=== PATIENT | female | born 1985 | race Caucasian/White ===

== ENCOUNTER 2017-12-09 09:09 | Emergency (ER) | payer OTHER ==
[2017-12-09 09:22] VITALS: RESP 16; TEMP 98.9
--- NOTE | 2017-12-09 10:04 | ED ---
Skin/Abscess/FB HPI - General Chief complaint: Skin/Abscess/Foreign Body Stated complaint: rash Time Seen by Provider: 12/09/17 09:34 Source: patient, RN notes reviewed, old records reviewed Mode of arrival: ambulatory - History of Present Illness Initial comments: This patient is a pleasant 32-year-old female presents emergency Department with 3 days of a rash over her gluteal cleft. She also complains of pain related to her hemorrhoids with having a bowel movement. She is on pain medication and she relates that she has history of constipation. She reports that she has had a history of yeast infection in the past. She states that she has had some irritation and pain over her gluteal cleft and it initially was very itchy. She relates that she has had no concern for central transmitted infections. Was recently checked by her CHIEF QUALITY OFFICER for all of these. She's been with 3 partners, and she's been with her for many years. Patient states that she developed a hemorrhoids after . - Related Data Home Medications Medication Instructions Recorded Confirmed Hydrocodone/Acetaminophen 1 tab PO BID PRN 05/16/15 12/09/17 [Hydrocodon-Acetaminophn 10-325] Aspirin EC [Ecotrin] 325 mg PO DAILY 12/09/17 12/09/17 Folic Acid 1 mg PO HS 12/09/17 12/09/17 Methotrexate Sodium [Methotrexate] 12.5 mg PO WE 12/09/17 12/09/17 Previous Rx's Medication Instructions Recorded Bisacodyl [Dulcolax] 10 mg PO ONCE #20 tablet. 12/09/17 Fluconazole [Diflucan] 150 mg PO ONCE #3 tab 12/09/17 Hydrocortisone [Anusol-Hc] 1 applic RECTAL DAILY #1 tube 12/09/17 Nystatin 100,000 Unit/gm Powd 1 applic TOPICAL BID #1 bottle 12/09/17 [Mycostatin Powder] Allergies Allergy/AdvReac Type Severity Reaction Status Date / Time No Known Allergies Allergy Verified 12/09/17 09:17 Review of Systems ROS Statement: Those systems with pertinent positive or pertinent negative responses have been documented in the HPI. ROS Other: All systems not noted in ROS Statement are negative. Past Medical History Past Medical History: Rheumatoid Arthritis (RA) Additional Past Medical History / Comment(s): frequent lower abdominal pain, nauseated,lupus anticoagulant disorder History of Any Multi-Drug Resistant Organisms: None Reported Past Surgical History: Orthopedic Surgery Additional Past Surgical History / Comment(s): arthrscopies knee Past Anesthesia/Blood Transfusion Reactions: No Reported Reaction Past Psychological History: No Psychological Hx Reported Smoking Status: Former smoker Past Alcohol Use History: Rare Past Drug Use History: None Reported - Past Family History Mother Family Medical History: No Reported History General Exam - General Exam Comments Initial Comments: 32-year-old female. No acute distress. General appearance: alert, in no apparent distress Head exam: Present: atraumatic, normocephalic, normal inspection Eye exam: Present: normal appearance, PERRL, EOMI. Absent: scleral icterus, conjunctival injection, periorbital swelling ENT exam: Present: normal exam, mucous membranes moist Neck exam: Present: normal inspection. Absent: tenderness, meningismus, lymphadenopathy Respiratory exam: Present: normal lung sounds bilaterally. Absent: respiratory distress, wheezes, rales, rhonchi, stridor Cardiovascular Exam: Present: regular rate, normal rhythm, normal heart sounds. Absent: systolic murmur, diastolic murmur, rubs, gallop, clicks GI/Abdominal exam: Present: soft, normal bowel sounds. Absent: distended, tenderness, guarding, rebound, rigid Rectal exam: Present: normal rectal tone, hemorrhoids (Patient has evidence of external hemorrhoid. No evidence of thrombosed hemorrhoid.), other (Patient has evidence of candidal infection over the gluteal cleft. There appears to be a small fissure noted in the gluteal cleft due to skin irritation.) Extremities exam: Present: normal inspection, full ROM, normal capillary refill. Absent: tenderness, pedal edema, joint swelling, calf tenderness Back exam: Present: normal inspection Neurological exam: Present: alert, oriented X3, CN II-XII intact Psychiatric exam: Present: normal affect, normal mood Course Vital Signs 12/09/17 09:16 Temperature 98.9 F Pulse Rate 94 Respiratory 16 Rate Blood Pressure 131/77 O2 Sat by Pulse 100 Oximetry Medical Decision Making - Medical Decision Making Patient's 32-year-old female presents emergency Department with infection of her gluteal cleft, and itching, she also reports pain related to hemorrhoids. Patient said history parents are many years. She said the pains got worse over the past week. She relates she also had some significant itching over her gluteal cleft. It appears the patient has a yeast infection. We'll treat the patient with Diflucan and nystatin powder. Discussed keeping the areas dry as possible., Severe the patient has a small fissure in the scan related to the [place] infection. Patient also will be started on stool softeners and Anusol for the hemorrhoid pain. Discussed appropriate follow-up with GI specialist or surgeon for possibility of hemorrhoid removal in banding. Patient agrees to treatment plan will comply. Return parameters were discussed. Disposition Clinical Impression: Kristan infection, Hemorrhoid Disposition: HOME SELF-CARE Condition: Good Instructions: Hemorrhoids (ED), Skin Yeast Infection (ED) Additional Instructions: Patient advised to follow-up with primary care provider and GI specialist in regards to the hemorrhoids and skin infection. Take the medications as prescribed. Return to emergency department if any alarming signs or symptoms occur. Prescriptions: Bisacodyl [Dulcolax] 10 mg PO ONCE #20 tablet. Fluconazole [Diflucan] 150 mg PO ONCE #3 tab Hydrocortisone [Anusol-Hc] 1 applic RECTAL DAILY #1 tube Nystatin 100,000 Unit/gm Powd [Mycostatin Powder] 1 applic TOPICAL BID #1 bottle Referrals: Isaac Shaw DO [Primary Care Provider] - 1-2 days Time of Disposition: 10:00
[2017-12-09 10:13] VITALS: BP 139/70; PULSE 74
== END 2017-12-09 10:19 | disposition home or self-care (01) ==
LOC: EC 09:09
DX: B37.9 Candidiasis, unspecified (principal); K64.4 Residual hemorrhoidal skin tags; Z87.891 Personal history of nicotine dependence; Z79.82 Long term (current) use of aspirin; Z79.899 Other long term (current) drug therapy
CPT/HCPCS: 36415; 82272; 87070; 87205; 99283

== ENCOUNTER → 2017-12-31 | Outpatient (CLI) | payer OTHER ==
--- NOTE | 2017-12-31 10:03 | CT ---
EXAMINATION TYPE: CT abdomen pelvis w con DATE OF EXAM: 12/31/2017 COMPARISON: NONE HISTORY: Abd/pelvic pain, Lymphadenopathy CT DLP: 1179 mGycm Automated exposure control for dose reduction was used. CONTRAST: CT scan of the abdomen pelvis is performed with IV Contrast, patient injected with 100 mL of Isovue 3 00. FINDINGS- LUNG BASES- No significant abnormality is appreciated. LIVER/GB- No gross abnormality is appreciated. PANCREAS- No gross abnormality is seen. SPLEEN- No gross abnormality is seen. ADRENALS- No gross abnormality is seen. KIDNEYS/BLADDER- no hydronephrosis nephrolithiasis or renal mass. BOWEL-mild wall thickening of the left colon and sigmoid colon.. LYMPH NODES-there are multiple areas of shotty adenopathy involving the inguinal femoral region bilat erally with one lymph node measuring short axis of 1 cm compatible with a pathologic lymph node. No i ntra-abdominal or pelvic pathologic adenopathy.. OSSEOUS STRUCTURES- No significant abnormality is seen. OTHER- 1 cm right ovarian cyst. Aorta of normal caliber. IMPRESSION- 1. Predominantly shotty adenopathy involving the inguinal region bilaterally with one lymph node [place] uring a short axis measurement of 1 cm compatible with a area of adenopathy. Findings correlate with pelvic ultrasound findings. Nonspecific in appearance. No intra-abdominal or pelvic adenopathy. 2. Mild wall thickening of the left colon and sigmoid colon may be related to incomplete distention r ather than colitis correlate clinically.
== END | disposition home or self-care (01) ==
LOC: RADCTMAIN 07:48
PROVIDERS: ATTEND Family Medicine
DX: R59.1 Generalized enlarged lymph nodes (principal); K63.89 Other specified diseases of intestine; Z79.899 Other long term (current) drug therapy
CPT/HCPCS: 74177; Q9967

== ENCOUNTER → 2018-05-20 | Outpatient (CLI) | payer OTHER ==
--- NOTE | 2018-05-20 09:52 | MR ---
EXAMINATION TYPE: MR brain wo con DATE OF EXAM: 05/20/2018 COMPARISON: NONE HISTORY: Migraine, unspecified, not intractable T1-weighted sagittal, T2, FLAIR, and diffusion axial, and T2 coronal coronal views of the brain are s ubmitted. There is no evidence of acute ischemia. The ventricles, basal cisterns, and sulci overlying the conv exities are consistent with the patient's age. There is no mass effect. Sella turcica has a normal appearance. No cerebellopontine angle mass. White matter: There are approximately 6 focal areas of abnormal signal in the white matter. All measu re less than 5 mm. There is nodular prominence of the region of the anterior communicating artery. Changes of chronic sinusitis noted. Cerebellar tonsils are low-lying in position measuring at the lev el the foramen magnum. IMPRESSION: 1. No acute intracranial process. 2. Low-lying cerebellar tonsils at the level the foramen magnum. 3. Minimal nonspecific white matter changes can be seen with migraine headaches, hypertension althoug h tiny focal areas remote microvascular ischemia or demyelinating process not entirely excluded. 4. There is a nodular prominence at the level of the anterior communicating artery. Would recommend M RA [place] to exclude a small aneurysm. 5. Mild changes of chronic sinusitis.
== END | disposition home or self-care (01) ==
LOC: RADMRIMAIN 09:11
PROVIDERS: ATTEND Family Medicine
DX: R90.89 Other abnormal findings on diagnostic imaging of central nervous system (principal)
CPT/HCPCS: 70551

== ENCOUNTER → 2018-05-31 | Outpatient (CLI) | payer OTHER ==
--- NOTE | 2018-05-31 17:41 | MR ---
EXAMINATION TYPE: MR angio head wo con DATE OF EXAM: 05/31/2018 COMPARISON: MRI brain May 20, 2018 HISTORY: Migraines, Abn MRI of brain in pacs TECHNIQUE: Time of flight images focusing on the [place] were performed without contrast.. 2-D and 3-D postprocessing imaging is performed and MRI scanner. FINDINGS: There is codominant vertebrobasilar system. Vertebral arteries are patent to basilar juncti on. There are patent bilateral posterior communicating arteries. No aneurysmal change or significant stenosis in posterior circulation is identified. Anterior circulation shows very small caliber patent anterior communicating artery without focal aneu rysm. No significant focal stenosis or aneurysmal change is present with particular attention to area of concern on recent MRI. IMPRESSION: No aneurysm in the [place] is evident.
== END | disposition home or self-care (01) ==
LOC: RADMRIMAIN 16:08
PROVIDERS: ATTEND Family Medicine
DX: G43.909 Migraine, unspecified, not intractable, without status migrainosus (principal)
CPT/HCPCS: 70544

== ENCOUNTER 2018-12-26 19:16 | Outpatient (CLI) | payer OTHER ==
[2018-12-26 20:32] VITALS: BP 109/66; PULSE 94; RESP 14; TEMP 98.2
--- NOTE | 2019-01-10 08:33 | P.MSEPDOC ---
Presenting Problems - Arrival Data Date of Arrival on Unit: 12/26/18 Time of Arrival on Unit: 19:18 Mode of Transport: Ambulatory - Complaint OB-Reason for Admission/Chief Complaint: Possible Onset of Labor Comment: cntrx and tightening since 1299 Medical History - Information : 2 Para: 1 Term: 1 : 0 Abortions: Spontaneous or Elective: 0 Number of Living Children: 1 - Gestational Age Gestational Age by AKBAR (wks/days): 23 Weeks and 1 Days - History Complications: Multiple Review of Systems - Review of Systems Constitutional: No problems Breast: No problems ENT: No problems Cardiovascular: No problems Respiratory: No problems Gastrointestinal: No problems Genitourinary: No problems Musculoskeletal: No problems Neurological: No problems Skin: No problems Vital Signs - Temperature Temperature: 98.2 F Temperature Source: Temporal Artery Scan - Pulse Right Pulse Rate: 94 Pulse Assessment Method: Automatic Cuff - Respirations Respiratory Rate: 14 O2 Sat by Pulse Oximetry: 98 - Blood Pressure Right Arm Blood Pressure: 109/66 Blood Pressure Mean: 80 Blood Pressure Source: Automatic Cuff Medical Screen Scoring (Pre) - Cervical Exam Dilation: Exam Deferred Effacement: Exam Deferred - Uterine Contractions Frequency: N/A Duration: N/A Intensity: N/A - Maternal Vital Signs Maternal Temperature: N/A Maternal Blood Pressure: N/A Signs of Preeclampsia: N/A Maternal Respirations: N/A - Total Score Total Score (Pre): 0 - Level of Risk Level of Risk: Low (0-5) Physician Notification (Pre) - Notification Comment Comment: twins dopplered appropriately, see obix. c/o cntrx and tightening since 1299, cramps since 1729, no bleeding or leaking noted. will continue to monitor toco at this time, pt to donna if she's feeling any tightening, cntrx, cramping. verbalizes understanding Medical Screen Scoring (Post) - Cervical Exam Dilation: 0 cm = 0 Membranes: Intact - Uterine Contractions Frequency: N/A Duration: N/A Intensity: N/A - Maternal Vital Signs Maternal Temperature: N/A Signs of Preeclampsia: N/A Maternal Respirations: N/A - Pain Assessment Pain Intensity: 0 - Total Score Total Score (Post): 0 - Post Treatment Level of Risk Post Treatment Level of Risk: Low (0-5) Physician Notification (Post) - Physician Notified Physician Notified Date: 12/26/18 Physician Notified Time: 20:06 Physician/Practitioner Notified:: Dr Hilliard New Order Received: Yes - Notification Comment Comment: reported on pts c/o. reported on fhts dopplered for each twin, no cntrx noted per pt or toco since being here. reported on no early delivery hx, vs wnl, no other complaints. scheduled appt next week in [facility]. orders to obtain ffn, check pts cervix, if closed, do not send ffn, and pt may be d/c'd home. Disposition - Disposition OB Disposition: Discharge to home Discharge Date: 12/26/18 Discharge Time: 20:15 I agree with the RN Medical Screening Exam: Yes Risk & Benefit of care provided described in d/c instruction: Yes Diagnosis: FALSE LABOR BEFORE 37 COMPLETED WEEKS OF GEST, SECOND TRI (twins)
== END 2018-12-26 20:18 | disposition home or self-care (01) ==
LOC: FBPOP 19:16
PROVIDERS: ATTEND Obstetrics & Gynecology
DX: O47.02 False labor before 37 completed weeks of gestation, second trimester (principal); O30.002 Twin pregnancy, unspecified number of placenta and unspecified number of amniotic sacs, second trimester; Z3A.23 23 weeks gestation of pregnancy
CPT/HCPCS: 99213

== ENCOUNTER 2019-03-03 15:46 | Outpatient (CLI) | payer OTHER | END 2019-03-03 16:30 | disposition home or self-care (01) | LOC: FBPOP 15:46 | PROVIDERS: ATTEND Obstetrics & Gynecology | DX: O30.043 Twin pregnancy, dichorionic/diamniotic, third trimester (principal); Z3A.32 32 weeks gestation of pregnancy | CPT/HCPCS: 59025 ==

== ENCOUNTER 2019-03-07 14:34 | Outpatient (CLI) | payer OTHER | END 2019-03-07 15:15 | disposition home or self-care (01) | LOC: FBPOP 14:34 | PROVIDERS: ATTEND Obstetrics & Gynecology | DX: O30.043 Twin pregnancy, dichorionic/diamniotic, third trimester (principal) | CPT/HCPCS: 59025 ==

== ENCOUNTER 2019-03-10 10:47 | Outpatient (CLI) | payer OTHER ==
--- NOTE | 2019-05-12 17:46 | P.MSEPDOC ---
Presenting Problems - Arrival Data Date of Arrival on Unit: 03/10/19 Time of Arrival on Unit: 11:00 Mode of Transport: Ambulatory Disposition - Disposition Discharge Date: 03/10/19 Discharge Time: 11:27 I agree with the RN Medical Screening Exam: No Physician's MSE Comment: There is incomplete documentation on this document per nursing staff and therefore I cannot agree to it. Risk & Benefit of care provided described in d/c instruction: No Diagnosis: RELATED CONDITIONS, UNSP, UNSPECIFIED TRIMESTER
== END 2019-03-10 11:28 | disposition home or self-care (01) ==
LOC: FBPOP 10:47
PROVIDERS: ATTEND Obstetrics & Gynecology
DX: O26.893 Other specified pregnancy related conditions, third trimester (principal); Z3A.33 33 weeks gestation of pregnancy
CPT/HCPCS: 59025

== ENCOUNTER 2019-03-14 13:20 | Outpatient (CLI) | payer OTHER ==
[2019-03-14 14:17] VITALS: BP 120/72; PULSE 90; RESP 16; TEMP 97.3
--- NOTE | 2019-03-14 15:06 | P.MSEPDOC ---
Presenting Problems - Arrival Data Date of Arrival on Unit: 03/14/19 Time of Arrival on Unit: 13:20 Mode of Transport: Ambulatory - Complaint OB-Reason for Admission/Chief Complaint: NST Medical History - Information : 2 Para: 1 Term: 1 : 0 Abortions: Spontaneous or Elective: 0 Number of Living Children: 1 - Gestational Age Gestational Age by AKBAR (wks/days): 34 Weeks and 2 Days - History Complications: Multiple Review of Systems - Review of Systems Constitutional: No problems Breast: No problems ENT: No problems Cardiovascular: No problems Respiratory: No problems Gastrointestinal: No problems Genitourinary: No problems Musculoskeletal: No problems Neurological: No problems Skin: No problems Vital Signs - Temperature Temperature: 97.3 F Temperature Source: Temporal Artery Scan - Pulse Right Sitting Pulse Rate: 90 Pulse Assessment Method: Automatic Cuff - Respirations Respiratory Rate: 16 Oxygen Delivery Method: Room Air - Blood Pressure Right Arm Blood Pressure: 120/72 Blood Pressure Mean: 88 Blood Pressure Source: Automatic Cuff Medical Screen Scoring (Pre) - Cervical Exam Dilation: Exam Deferred Effacement: Exam Deferred Membranes: Intact - Uterine Contractions Frequency: N/A - Maternal Vital Signs Maternal Temperature: N/A Maternal Blood Pressure: N/A Signs of Preeclampsia: N/A Maternal Respirations: N/A - Maternal Trauma Maternal Trauma: N/A - Assessment - Baby A Baseline FHR: 135 Heart Rate - NICHD Category: Category I (Normal) = 0 NST: Reactive Position: N/A Station: N/A - Assessment - Baby B Baseline FHR: 150 Heart Rate - NICHD Category: Category I (Normal) = 0 NST: Reactive Position: N/A Station: N/A - Total Score - Baby A Total Score - Baby A: 0 - Total Score - Baby B Total Score - Baby B: 0 - Total Score - Baby C Total Score - Baby C: 0 - Level of Risk - Baby A Level of Risk - Baby A: Low (0-5) - Level of Risk - Baby B Level of Risk - Baby B: Low (0-5) - Level of Risk - Baby C Level of Risk - Baby C: Low (0-5) Physician Notification (Pre) - Physician Notified Physician Notified Date: 03/14/19 Physician Notified Time: 14:02 Physician/Practitioner Notifed:: Ashlyn New Order Received: Yes (D/c home) Disposition - Disposition OB Disposition: Discharge to home Discharge Date: 03/14/19 Discharge Time: 14:06 I agree with the RN Medical Screening Exam: Yes Risk & Benefit of care provided described in d/c instruction: Yes Diagnosis: MULTIPLE GESTATION, UNSPECIFIED, THIRD TRIMESTER
== END 2019-03-14 14:06 | disposition home or self-care (01) ==
LOC: FBPOP 13:20
PROVIDERS: ATTEND Obstetrics & Gynecology
DX: O30.003 Twin pregnancy, unspecified number of placenta and unspecified number of amniotic sacs, third trimester (principal); Z3A.34 34 weeks gestation of pregnancy
CPT/HCPCS: 59025; G0463; 99213

== ENCOUNTER 2019-03-17 11:26 | Outpatient (CLI) | payer OTHER ==
[2019-03-17 13:29] VITALS: BP 111/67; PULSE 92; RESP 16; TEMP 97
--- NOTE | 2019-03-21 20:54 | P.MSEPDOC ---
Presenting Problems - Arrival Data Date of Arrival on Unit: 03/17/19 Time of Arrival on Unit: 11:26 Mode of Transport: Ambulatory - Complaint OB-Reason for Admission/Chief Complaint: NST Medical History - Information : 2 Para: 1 Term: 1 : 0 Abortions: Spontaneous or Elective: 0 Number of Living Children: 1 - Gestational Age Gestational Age by AKBAR (wks/days): 34 Weeks and 5 Days - History Complications: No Care Review of Systems - Review of Systems Constitutional: No problems Breast: No problems ENT: No problems Cardiovascular: No problems Respiratory: No problems Gastrointestinal: No problems Genitourinary: No problems Musculoskeletal: No problems Neurological: No problems Skin: No problems Vital Signs - Temperature Temperature: 97.0 F Temperature Source: Temporal Artery Scan - Pulse Right Brachial Pulse Rate: 92 Pulse Assessment Method: Automatic Cuff - Respirations Respiratory Rate: 16 Oxygen Delivery Method: Room Air O2 Sat by Pulse Oximetry: 96 - Blood Pressure Right Arm Blood Pressure: 111/67 Blood Pressure Mean: 81 Blood Pressure Source: Automatic Cuff Medical Screen Scoring (Pre) - Cervical Exam Dilation: Exam Deferred Effacement: Exam Deferred Membranes: Intact - Uterine Contractions Frequency: N/A Duration: N/A Intensity: N/A - Maternal Vital Signs Maternal Temperature: N/A Maternal Blood Pressure: N/A Signs of Preeclampsia: N/A Maternal Respirations: N/A - Maternal Trauma Maternal Trauma: N/A - Assessment - Baby A Baseline FHR: 160 Heart Rate - NICHD Category: Category I (Normal) = 0 NST: Reactive Position: N/A Station: N/A - Assessment - Baby B Baseline FHR: 135 Heart Rate - NICHD Category: Category I (Normal) = 0 NST: Reactive Position: N/A Station: N/A - Total Score - Baby A Total Score - Baby A: 0 - Total Score - Baby B Total Score - Baby B: 0 - Total Score - Baby C Total Score - Baby C: 0 - Level of Risk - Baby A Level of Risk - Baby A: Low (0-5) - Level of Risk - Baby B Level of Risk - Baby B: Low (0-5) - Level of Risk - Baby C Level of Risk - Baby C: Low (0-5) Physician Notification (Pre) - Physician Notified Physician Notified Date: 03/17/19 Physician Notified Time: 12:09 Physician/Practitioner Notifed:: Dr. Goldberg Spoke With: Dr. Goldberg - Notification Comment Comment: Dr. Goldberg called and given report on pt nst. Reactive nst for both twin a and b. VS wnl. No contractions per toco or pt. Orders received to d/c pt to home. Disposition - Disposition OB Disposition: Discharge to home Discharge Date: 03/17/19 Discharge Time: 12:11 I agree with the RN Medical Screening Exam: Yes Risk & Benefit of care provided described in d/c instruction: Yes Diagnosis: TWIN , DICHORIONIC/DIAMNIOTIC, THIRD TRIMESTER
== END 2019-03-17 12:11 | disposition home or self-care (01) ==
LOC: FBPOP 11:26
PROVIDERS: ATTEND Obstetrics & Gynecology
DX: O30.043 Twin pregnancy, dichorionic/diamniotic, third trimester (principal); Z3A.34 34 weeks gestation of pregnancy
CPT/HCPCS: 59025; G0463; 99213

== ENCOUNTER 2019-03-21 13:26 | Outpatient (CLI) | payer OTHER ==
[2019-03-21 14:43] VITALS: BP 109/66; PULSE 86; RESP 16; TEMP 98.1
--- NOTE | 2019-03-21 20:54 | P.MSEPDOC ---
Presenting Problems - Arrival Data Date of Arrival on Unit: 03/21/19 Time of Arrival on Unit: 13:26 Mode of Transport: Ambulatory - Complaint OB-Reason for Admission/Chief Complaint: NST Comment: Twins Medical History - Information : 2 Para: 1 Term: 1 : 0 Abortions: Spontaneous or Elective: 0 Number of Living Children: 1 - Gestational Age Gestational Age by AKBAR (wks/days): 35 Weeks and 2 Days Vital Signs - Temperature Temperature: 98.1 F Temperature Source: Temporal Artery Scan - Pulse Right Brachial Pulse Rate: 86 Pulse Assessment Method: Auscultation - Respirations Respiratory Rate: 16 Oxygen Delivery Method: Room Air O2 Sat by Pulse Oximetry: 97 - Blood Pressure Right Arm Blood Pressure: 109/66 Blood Pressure Mean: 80 Blood Pressure Source: Automatic Cuff Medical Screen Scoring (Pre) - Assessment - Baby A Baseline FHR: 130 Heart Rate - NICHD Category: Category I (Normal) = 0 NST: Reactive Position: N/A Station: N/A - Assessment - Baby B Baseline FHR: 125 Heart Rate - NICHD Category: Category I (Normal) = 0 NST: Reactive Position: N/A Station: N/A - Total Score - Baby A Total Score - Baby A: 0 - Total Score - Baby B Total Score - Baby B: 0 - Level of Risk - Baby A Level of Risk - Baby A: Low (0-5) - Level of Risk - Baby B Level of Risk - Baby B: Low (0-5) Physician Notification (Post) - Physician Notified Physician Notified Date: 03/21/19 Physician Notified Time: 14:01 Physician/Practitioner Notified:: Ashlyn New Order Received: Yes - Notification Comment Comment: Routine Twin NST, reactive, no contractions, discharge to home, next appt 03/24 Disposition - Disposition OB Disposition: Discharge to home, Written follow up instructions reviewed Discharge Date: 03/21/19 Discharge Time: 14:05 I agree with the RN Medical Screening Exam: Yes Risk & Benefit of care provided described in d/c instruction: Yes Diagnosis: TWIN , DICHORIONIC/DIAMNIOTIC, THIRD TRIMESTER
== END 2019-03-21 14:05 | disposition home or self-care (01) ==
LOC: FBPOP 13:26
PROVIDERS: ATTEND Obstetrics & Gynecology
DX: O30.043 Twin pregnancy, dichorionic/diamniotic, third trimester (principal); Z3A.35 35 weeks gestation of pregnancy
CPT/HCPCS: 59025

== ENCOUNTER 2019-03-24 10:47 | Outpatient (CLI) | payer OTHER ==
[2019-03-24 11:03] VITALS: BP 115/72; PULSE 93; RESP 17; TEMP 98.3
--- NOTE | 2019-05-12 17:45 | P.MSEPDOC ---
Presenting Problems - Arrival Data Date of Arrival on Unit: 03/24/19 Time of Arrival on Unit: 10:47 Mode of Transport: Ambulatory Vital Signs - Temperature Temperature: 98.3 F Temperature Source: Temporal Artery Scan - Pulse Right Brachial Pulse Rate: 93 Pulse Assessment Method: Automatic Cuff - Respirations Respiratory Rate: 17 Oxygen Delivery Method: Room Air O2 Sat by Pulse Oximetry: 97 - Blood Pressure Right Arm Blood Pressure: 115/72 Blood Pressure Mean: 86 Blood Pressure Source: Automatic Cuff Disposition - Disposition Discharge Date: 03/24/19 Discharge Time: 11:15 I agree with the RN Medical Screening Exam: No Physician's MSE Comment: There is incomplete documentation on this document by nursing staff and therefore I cannot agrees to it. Risk & Benefit of care provided described in d/c instruction: No Diagnosis: RELATED CONDITIONS, UNSP, UNSPECIFIED TRIMESTER
== END 2019-03-24 11:15 | disposition home or self-care (01) ==
LOC: FBPOP 10:47
PROVIDERS: ATTEND Obstetrics & Gynecology
DX: O26.90 Pregnancy related conditions, unspecified, unspecified trimester (principal); Z3A.00 Weeks of gestation of pregnancy not specified
CPT/HCPCS: 59025

== ENCOUNTER 2019-03-31 12:17 | Outpatient (CLI) | payer OTHER ==
[2019-03-31 13:53] VITALS: BP 119/78; PULSE 85; RESP 18; TEMP 98.4
--- NOTE | 2019-04-03 15:10 | P.MSEPDOC ---
Presenting Problems - Arrival Data Date of Arrival on Unit: 03/31/19 Time of Arrival on Unit: 12:20 Mode of Transport: Ambulatory - Complaint OB-Reason for Admission/Chief Complaint: NST Comment: twin gestation. Medical History - Information : 2 Para: 1 Term: 1 : 0 Abortions: Spontaneous or Elective: 0 Number of Living Children: 1 - Gestational Age Gestational Age by AKBAR (wks/days): 38 Weeks and 2 Days - History Comment: twins Review of Systems - Review of Systems Constitutional: No problems Breast: No problems ENT: No problems Cardiovascular: No problems Respiratory: No problems Gastrointestinal: No problems Genitourinary: No problems Musculoskeletal: No problems Neurological: No problems Skin: No problems Vital Signs - Temperature Temperature: 98.4 F Temperature Source: Oral - Pulse Right Brachial Pulse Rate: 85 Pulse Assessment Method: Automatic Cuff - Respirations Respiratory Rate: 18 Oxygen Delivery Method: Room Air O2 Sat by Pulse Oximetry: 99 - Blood Pressure Right Arm Blood Pressure: 119/78 Blood Pressure Mean: 91 Blood Pressure Source: Automatic Cuff Medical Screen Scoring (Pre) - Cervical Exam Dilation: Exam Deferred Effacement: Exam Deferred Membranes: Intact - Uterine Contractions Frequency: N/A - Maternal Vital Signs Maternal Temperature: N/A Maternal Blood Pressure: N/A Signs of Preeclampsia: N/A Maternal Respirations: N/A - Maternal Trauma Maternal Trauma: N/A - Assessment - Baby A Baseline FHR: 135 Heart Rate - NICHD Category: Category I (Normal) = 0 NST: Reactive Position: N/A Station: N/A - Assessment - Baby B Baseline FHR: 140 Heart Rate - NICHD Category: Category I (Normal) = 0 NST: Reactive Position: N/A Station: N/A - Total Score - Baby A Total Score - Baby A: 0 - Total Score - Baby B Total Score - Baby B: 0 - Total Score - Baby C Total Score - Baby C: 0 - Level of Risk - Baby A Level of Risk - Baby A: Low (0-5) - Level of Risk - Baby B Level of Risk - Baby B: Low (0-5) - Level of Risk - Baby C Level of Risk - Baby C: Low (0-5) Physician Notification (Pre) - Physician Notified Physician Notified Date: 03/31/19 Physician Notified Time: 13:35 Spoke With: yane Eli Order Received: Yes - Notification Comment Comment: discharge Disposition - Disposition OB Disposition: Discharge to home Discharge Date: 03/31/19 Discharge Time: 13:35 I agree with the RN Medical Screening Exam: Yes Risk & Benefit of care provided described in d/c instruction: Yes Diagnosis: MULTIPLE GESTATION, UNSPECIFIED, THIRD TRIMESTER
== END 2019-03-31 13:35 | disposition home or self-care (01) ==
LOC: FBPOP 12:17
PROVIDERS: ATTEND Obstetrics & Gynecology
DX: O30.93 Multiple gestation, unspecified, third trimester (principal); Z3A.38 38 weeks gestation of pregnancy
CPT/HCPCS: 59025; G0463; 99213

== ENCOUNTER 2019-04-05 06:04 | Inpatient (IN) | payer OTHER ==
[2019-04-01 13:26] VITALS: BMI 28.4
--- NOTE | 2019-04-04 11:04 | P.HPOB ---
History of Present Illness H&P Date: 04/04/19 Chief Complaint: Twin gestation This is a 34-year-old female 3 para 1 with an estimated date of confinement of 04/23/2019, estimated gestational age of 37-3/7 weeks, with twin gestation who presents for scheduled primary section due to twin gestation. She has been complaining of frequent contractions and back pain but no regular contractions. She has been followed throughout this by maternal medicine. She has dichorionic diamniotic twins. Twins have been concordant in growth. Obstetrical history: 3 para 1. History of 1 vaginal delivery at term. History of 1 miscarriage. Gynecologic history: No history of sexual transmitted diseases. Social history: She is . She works as a waiter/waitress informal. Review of Systems Constitutional: Denies chills, Denies fever Eyes: denies blurred vision, denies pain Ears, nose, mouth and throat: Denies headache, Denies sore throat Cardiovascular: Denies chest pain, Denies shortness of breath Respiratory: Denies cough Gastrointestinal: Reports abdominal pain (Irregular contractions) Genitourinary: Reports pelvic pain, Reports Musculoskeletal: Reports low back pain Integumentary: Denies pruritus, Denies rash Neurological: Denies numbness, Denies weakness Psychiatric: Denies anxiety, Denies depression Past Medical History Past Medical History: GERD/Reflux, Rheumatoid Arthritis (RA), Skin Disorder Additional Past Medical History / Comment(s): History of lupus anticoagulation disorder, varicose veins, arthritis in kness and back, psoriasis History of Any Multi-Drug Resistant Organisms: None Reported Past Surgical History: Orthopedic Surgery Additional Past Surgical History / Comment(s): arthrscopiic rt knee x2 Past Anesthesia/Blood Transfusion Reactions: No Reported Reaction Past Psychological History: No Psychological Hx Reported Smoking Status: Former smoker Past Alcohol Use History: None Reported Past Drug Use History: None Reported - Past Family History Mother Family Medical History: No Reported History Medications and Allergies Home Medications Medication Instructions Recorded Confirmed Type Pnv No.95/Ferrous Fum/Folic AC 1 tab PO ONCE 12/26/18 04/01/19 History [ Multivitamin Tablet] Allergies Allergy/AdvReac Type Severity Reaction Status Date / Time No Known Allergies Allergy Verified 04/01/19 13:18 Exam Osteopathic Statement: *. No significant issues noted on an osteopathic structural exam other than those noted in the History and Physical/Consult. HEENT: Within normal limits Heart: Regular rate and rhythm Lungs: Clear to auscultation bilaterally Abdomen: heart tones 130s by Doppler on each baby. Extremities: Trace edema Assessment and Plan (1) Twin gestation in third trimester Status: Acute Code(s): O30.003 - TWIN PREG, UNSP NUM PLCNTA & AMNIO SACS, THIRD TRIMESTER SNOMED Code(s): 41117458 (2) 37 weeks gestation of Status: Acute Code(s): Z3A.37 - 37 WEEKS GESTATION OF SNOMED Code(s): 42679413 Plan: Proceed with primary section for twins. I have discussed the risks, benefits, and alternative therapies for the above- mentioned procedure and for both sedation/anesthesia as well as necessary blood products administration, if indicated, as they pertain to this patient. The patient has indicated her understanding and acceptance of the risks and procedures discussed.
[2019-04-05] MEDS ORDERED: LACTATED RINGERS 1,000 ML IV ONE (06:07)
[2019-04-05] MEDS ORDERED: LIDOCAINE 1% 20 ML VIAL (10MG/ML) FOR IV START INTRADERMA PRN (06:07)
[2019-04-05] MEDS ORDERED: CITRIC ACID-SODIUM CITRATE 15 ML CUP PO ONE (06:07)
[2019-04-05 07:23] LABS: Basophils % (A) 0 %; Eosinophils # (A) 0.1 k/uL (0-0.7); Eosinophils % (A) 1 %; HCT 38.5 % (34.0-46.0); HGB 13.5 gm/dL (11.4-16.0); Lymphocytes # (A) 1.9 k/uL (1.0-4.8); Lymphocytes % (A) 24 %; MCH 32.5 pg (25.0-35.0); MCHC 35.1 g/dL (31.0-37.0); MCV 92.7 fL (80.0-100.0); Mean Platelet Volume 8.8; Monocytes # (A) 0.6 k/uL (0-1.0); Monocytes % (A) 8 %; Neutrophils # (A) 5.3 k/uL (1.3-7.7); Neutrophils % (A) 67 %; Platelet Count 174 k/uL (150-450); RBC 4.15 m/uL (3.80-5.40); WBC 7.9 k/uL (3.8-10.6)
[2019-04-05] MEDS ORDERED: fentaNYL (PF) 50 MCG/ML 2 ML AMP ONE (08:00)
[2019-04-05] MEDS ORDERED: NALBUPHINE 10 MG/ML (1 ML AMP) ONE (08:00)
[2019-04-05] MEDS ORDERED: MORPHINE SULFATE (PF) 0.3 MG/0.3 ML SYR ONE (08:00)
[2019-04-05] MEDS ORDERED: OXYTOCIN 10 UNIT/ML 1 ML VIAL ONE (08:00)
[2019-04-05] MEDS ORDERED: ONDANSETRON 4 MG/2 ML VIAL ONE (08:00)
[2019-04-05] MEDS ORDERED: KETOROLAC 30 MG/ML 1 ML VIAL ONE (08:00)
[2019-04-05] MEDS ORDERED: PHENYLEPHRINE-0.9% NACL SYG 1 MG/10 ML SYRINGE ONE (08:00)
[2019-04-05] MEDS ORDERED: NALBUPHINE 10 MG/ML (1 ML AMP) IV PRN (08:32)
[2019-04-05] MEDS ORDERED: diphenhydrAMINE 50 MG/ML 1 ML VIAL IVP PRN ×3 (08:32→09:18)
[2019-04-05] MEDS ORDERED: ONDANSETRON 4 MG/2 ML VIAL IVP PRN ×2 (08:32→09:18)
[2019-04-05] MEDS ORDERED: NALOXONE 0.4 MG/ML 1 ML VIAL IV PRN ×2 (08:32→09:18)
[2019-04-05] MEDS ORDERED: MORPHINE SULFATE 2 MG/ML SYRINGE IVP PRN (08:32)
--- NOTE | 2019-04-05 08:57 | P.OP ---
Date of Procedure: 04/05/19 Preoperative Diagnosis: Twin gestation at 37-3/7 weeks Postoperative Diagnosis: Same Procedure(s) Performed: Primary low transverse section Anesthesia: spinal (Duramorph) Surgeon: Jocelynn Goldberg Negotiations Director #1: Lauri Hilliard Estimated Blood Loss (ml): 800 Pathology: other (Placenta) Condition: stable Disposition: floor Indications for Procedure: This is a 34-year-old female 3 para 1 at 37-3/7 weeks with twin gestation who presented for scheduled primary section. Operative Findings: Baby A is a viable male in the vertex presentation with scores of 9 at 1 minute and 9 at 5 minutes and weight of 6 lbs. 13 oz. Baby B is a viable male infant in the footling breech presentation with scores of 5 at 1 minute and 7 at 5 minutes and 9 at 10 minutes and weight of 5 lbs. 7 oz . Normal uterus tubes and ovaries are noted. 2 separate amniotic sacs were noted. Clear fluid was noted with both babies. Baby B did have a nuchal cord times one. Description of Procedure: The patient is taken to the operating room where she is placed in the dorsal supine position with leftward tilt after spinal Duramorph anesthesia is given. She is prepped and draped in the normal sterile fashion. Skin was tested and found to be adequately anesthetized. A Pfannenstiel skin incision was made with a scalpel. A second knife was used to carry the incision down to the underlying layer of fascia. The fascia was nicked in the midline with a scalpel and then extended laterally bilaterally with Unger scissors. The anterior lip of the fascia was grasped with 2 Virgil clamps and then dissected off the underlying rectus muscle in the midline with Unger scissors. The inferior aspect of the fascial incision was grasped with 2 Virgil clamps and dissected off the un derlying rectus muscle and the midline with Unger scissors. Next the peritoneum layer was tented up with 2 hemostats and then entered sharply with the scalpel. The incision is extended superiorly and inferiorly with Metzenbaum scissors. Next a DeLee retractor is placed. The vesicouterine peritoneum is entered sharply with Metzenbaum scissors and extended laterally bilaterally with Metzenbaum scissors and then the bladder flap is pushed inferiorly. The lower uterine segment is incised in transverse fashion with the scalpel and then bluntly entered with a hemostat. Clear fluid is noted. The incision was then extended laterally bilaterally with 2 fingers. Next the baby A's head is delivered through the incision. Nose and mouth are bulb suctioned. The remainder of the is easily delivered and placed on mother's abdomen. Cord is clamped and cut. is taken to warmer by nursing staff. Next baby B's position was palpated in a jackson breech presentation. The feet were grasped and the amniotic sac was ruptured with clear fluid noted. The infant was then delivered in a breech presentation followed by the trunk followed by each arm in a flexed position and the head in a flexed position. Nuchal cord times one was reduced around the infant after delivery. Uterine fundus is gently massaged and placentas were delivered manually. Uterus is exteriorized and cleared of all clots and debris. Uterine incision is closed with 0 Vicryl suture in a running locked fashion. A second layer of 0 Vicryl suture is used in a running fashion for hemostasis. Once adequate hemostasis as assured, the vesicouterine peritoneum is reapproximated with 2-0 Vicryl suture in a running fashion. Posterior cul-de-sac is suctioned of all clots and debris. Uterus is returned to the abdomen. Incision is noted to be hemostatic. Peritoneal layer is closed with 0 Vicryl suture in a running fashion. Muscle layer is reapproximated with 0 Vicryl suture in interrupted fashion. Fascia layer is then closed with 0 PDS suture with 2 sutures meeting in the midline and the knots buried in either side and in the midline. The subcutaneous tissue was then closed with 2-0 Vicryl suture. Skin layer was then closed with aziza. All sponge and needle counts are correct. The patient is taken to recovery room in stable condition.
[2019-04-05] MEDS ORDERED: diphenhydrAMINE 50 MG CAP PO PRN (09:18)
[2019-04-05] MEDS ORDERED: SIMETHICONE 80 MG CHEWABLE PO PRN (09:18)
[2019-04-05] MEDS ORDERED: LANOLIN CREAM 5 GM TUBE TOPICAL PRN (09:18)
[2019-04-05] MEDS ORDERED: METOCLOPRAMIDE 5 MG/ML 2 ML VIAL IVP PRN (09:18)
[2019-04-05] MEDS ORDERED: HYDROcodone/APAP 7.5-325MG 1 EACH TAB PO PRN (09:18)
[2019-04-05] MEDS ORDERED: ACETAMINOPHEN TAB 325 MG TAB PO PRN (09:18)
[2019-04-05] MEDS ORDERED: KETOROLAC 30 MG/ML 1 ML VIAL IVP PRN (09:18)
[2019-04-05] MEDS ORDERED: diphenhydrAMINE 25 MG CAP PO PRN (09:18)
[2019-04-05] MEDS ORDERED: ZOLPIDEM 5 MG TAB PO PRN (09:18)
[2019-04-05] MEDS ORDERED: OXYTOCIN 20 UNITS/1000 ML NS 1,000 ML IV SCH (09:18)
[2019-04-05] MEDS: KETOROLAC 30 MG/ML 1 ML VIAL IVP PRN ×2 (13:15→19:02)
[2019-04-05] MEDS: SENNOSIDES-DOCUSATE SODIUM 1 EACH TAB PO SCH ×2 (19:45→20:27)
[2019-04-05] MEDS: LACTATED RINGERS 1,000 ML IV SCH ×2 (20:27→23:06)
[2019-04-06] MEDS: KETOROLAC 30 MG/ML 1 ML VIAL IVP PRN (02:08)
[2019-04-06 06:49] LABS: Basophils % (A) 0 %; Eosinophils # (A) 0.1 k/uL (0-0.7); Eosinophils % (A) 2 %; Lymphocytes # (A) 1.7 k/uL (1.0-4.8); Lymphocytes % (A) 21 %; MCH 32.7 pg (25.0-35.0); MCHC 34.9 g/dL (31.0-37.0); MCV 93.8 fL (80.0-100.0); Mean Platelet Volume 9.9; Monocytes # (A) 0.5 k/uL (0-1.0); Monocytes % (A) 6 %; Neutrophils # (A) 5.7 k/uL (1.3-7.7); Neutrophils % (A) 70 %; Platelet Count 132 k/uL (150-450); RDW 13.4 % (11.5-15.5); WBC 8.1 k/uL (3.8-10.6)
[2019-04-06 06:53] LABS: HGB 10.5 gm/dL (11.4-16.0)
--- NOTE | 2019-04-06 08:02 | P.PN ---
Progress Note - Text Progress Note Date: 04/06/19 Patient without complaints. Ambulating without c/o weakness or paresthesia. Denies headache. Pain and pruritis controlled. Spinal site clean and dry. A/P POD#1 s/p spinal w/ duramorph for - doing well
--- NOTE | 2019-04-06 09:13 | P.PNOBGPC ---
Subjective - Subjective Principal diagnosis: Status post primary section postoperative day #1 Interval history: Patient is doing okay. She has ambulated. She is still unable to urinate yet. She has been straight cathed twice. Lochia has been moderate. She is working on breast-feeding. She is passing a small amount of flatus but no bowel movement yet. Patient reports: Reports appetite normal, Reports voiding normally, Reports pain well controlled, Reports ambulating normally : doing well Objective - Vital Signs Latest vital signs: Vital Signs Temp Pulse Resp BP Pulse Ox 04/06/19 05:59 16 04/06/19 04:00 97.9 F 73 16 106/63 96 04/06/19 02:00 16 04/06/19 00:00 98.5 F 73 16 112/69 96 04/05/19 22:00 16 04/05/19 20:00 98.4 F 72 16 108/68 98 04/05/19 17:00 16 04/05/19 16:00 97.9 F 72 15 105/60 97 04/05/19 15:32 15 04/05/19 11:00 97.6 F 73 16 107/69 04/05/19 10:27 71 15 108/69 04/05/19 09:54 96.7 F L 71 16 105/68 97 04/05/19 09:39 68 15 107/67 96 04/05/19 09:32 15 96 04/05/19 09:27 67 18 108/65 Intake and Output 04/05/19 04/06/19 04/06/19 22:59 06:59 14:59 Intake Total 600 600 Output Total 300 1000 Balance 300 -400 Intake: Other 600 600 Output: Urine 300 1000 Straight 1000 Uretheral (Do) 300 - Exam Extremities: Present: normal, edema (Trace). Absent: tenderness Abdomen: Present: normal appearance, soft (Positive bowel sounds 4). Absent: distention, tenderness Incision: Present: normal, intact, dressed (Some serosanguineous discharge noted on the left side of the dressing but is dry once dressing is removed.). Absent: erythematous Uterus: Present: normal, firm. Absent: tenderness - Labs Labs: Abnormal Lab Results - Last 24 Hours (Table) 04/06/19 Range/Units 06:32 RBC 3.20 L (3.80-5.40) m/uL Hgb 10.5 L D (11.4-16.0) gm/dL Hct 30.0 L (34.0-46.0) % Plt Count 132 L (150-450) k/uL Assessment and Plan Assessment: Status post primary section postoperative day #1 (1) Twin gestation in third trimester Current Visit: No Status: Acute Code(s): O30.003 - TWIN PREG, UNSP NUM PLCNTA & AMNIO SACS, THIRD TRIMESTER SNOMED Code(s): 07778688 (2) 37 weeks gestation of Current Visit: No Status: Acute Code(s): Z3A.37 - 37 WEEKS GESTATION OF SNOMED Code(s): 51950438 Plan: Continue with postoperative care. Encouraged ambulation. Will advance diet as tolerated.
[2019-04-06] MEDS: HYDROcodone/APAP 5-325MG 1 EACH TAB PO PRN ×2 (10:31→20:56)
[2019-04-06] MEDS: SENNOSIDES-DOCUSATE SODIUM 1 EACH TAB PO SCH ×2 (10:31→20:56)
[2019-04-06] MEDS: IBUPROFEN 600 MG TAB PO PRN (17:47)
[2019-04-07] MEDS: HYDROcodone/APAP 5-325MG 1 EACH TAB PO PRN ×3 (01:31→12:33)
[2019-04-07] MEDS: SENNOSIDES-DOCUSATE SODIUM 1 EACH TAB PO SCH (08:05)
--- NOTE | 2019-04-07 09:14 | P.DS ---
Providers Date of admission: 04/05/19 06:04 Expected date of discharge: 04/07/19 Attending physician: Jocelynn Goldberg Primary care physician: Stated None - Discharge Diagnosis(es) (1) Twin gestation in third trimester Current Visit: No Status: Acute (2) 37 weeks gestation of Current Visit: No Status: Acute Hospital Course: This is a 34-year-old female 3 para 1 at already 7-3/7 weeks with twin gestation who presented for primary section. She underwent a primary low transverse section on 04/05/2019 and delivered viable male infants with baby A with scores of 9 at 1 minute and 9 at 5 minutes and infant weight of 6 lbs. 13 oz. and baby B with scores of 5 at 1 minute and 7 at 5 minutes and 9 at 10 minutes and infant weight of 5 lbs. 7 oz. Her course has been essentially uncomplicated. She initially did have some trouble urinating but has been urinating without difficulty now. She is passing flatus and bowel movement. Pain is fairly well controlled with ibuprofen and Troy. She is breast-feeding. Vital signs are stable. Abdomen is soft with positive bowel sounds 4. Incision is clean dry and intact with aziza in place. Extremities show negative Homans. Impression is status post primary section postoperative day #2. Plan is to discharge home today. Aziza will be removed and sterile strips placed prior to discharge. Routine postoperative and instructions are given. She will be given prescriptions for ibuprofen and Troy. She has signed a start taking opioid consent form and has been counseled regarding safe opioid use. She will also be given a prescription for a breast pump. She is advised to follow up in the office in 1 week for a postoperative check and in 6 weeks for check. She is advised to call the office if she has any further questions or concerns prior to her appointment time. Procedures: Primary low transverse section on 04/05/2019 for delivery of twin boys. Patient Condition at Discharge: Stable Plan - Discharge Summary Discharge Rx Participant: Yes New Discharge Prescriptions: New Ibuprofen [Motrin] 600 mg PO Q6HR PRN #60 tab PRN Reason: Mild Pain Or Fever >= 100.5 HYDROcodone/APAP 5-325MG [Troy 5-325] 1 each PO Q4HR PRN #30 tab PRN Reason: Moderate Pain Continue Pnv No.95/Ferrous Fum/Folic AC [ Multivitamin Tablet] 1 tab PO ONCE Discharge Medication List Pnv No.95/Ferrous Fum/Folic AC [ Multivitamin Tablet] 1 tab PO ONCE 12/26/18 [History] HYDROcodone/APAP 5-325MG [Troy 5-325] 1 each PO Q4HR PRN #30 tab 04/07/19 [Rx] Ibuprofen [Motrin] 600 mg PO Q6HR PRN #60 tab 04/07/19 [Rx] Follow up Appointment(s)/Referral(s): Jocelynn Goldberg DO [Doctor of Osteopathic Medicine] - 1 Week Activity/Diet/Wound Care/Special Instructions: Instructions 1. Do not begin any exercise program for 3 weeks. 2. Do not resume sexual relations for 3 weeks or longer if uncomfortable. 3. You may take tub baths or showers at any time. 4. You may use tampons if desired after 3 weeks. 5. Keep the area of episiotomy (stitches) clean and dry. 6. If you are not nursing, wear a good fitting, supportive bra during the day and limit fluid intake for at least 1 week to prevent breast engorgement. 7. Call the office, [phone], within the next week to make appointment for your 6 week checkup if it has not already been made. 8. Report any of the following occurrences to the doctor promptly: a. Heavy, excessive bleeding b. Chills, fever c. Burning or frequency of urination d. Pain or redness and breasts if nursing e. Increasing pain or swelling in episiotomy (stitches). In addition to the above instructions, the following additional should be followed: 1. No heavy lifting or straining (exercising) until after 6 week checkup. 2. Keep abdominal incision clean and dry: You may wear a dressing if more comfortable. 3. Make office appointment for 10 days after going home or as instructed by her doctor. Discharge Disposition: HOME SELF-CARE
[2019-04-07 12:41] VITALS: BP 107/71; PULSE 76; RESP 18; TEMP 97.9
[2019-04-07] MEDS: IBUPROFEN 600 MG TAB PO PRN (17:42)
== END 2019-04-07 17:57 | disposition home or self-care (01) | DRG 786 ==
LOC: 4FBP 06:04
PROVIDERS: ADMIT Obstetrics & Gynecology; ATTEND Obstetrics & Gynecology
PROC: 10D00Z1 Extraction of Products of Conception, Low, Open Approach (ICD-10-PCS; principal; 2019-04-05 08:00)
DX: O30.043 Twin pregnancy, dichorionic/diamniotic, third trimester (principal); O99.42 Diseases of the circulatory system complicating childbirth; O32.1XX2 Maternal care for breech presentation, fetus 2; O69.81X2 Labor and delivery complicated by cord around neck, without compression, fetus 2; O99.62 Diseases of the digestive system complicating childbirth; K21.9 Gastro-esophageal reflux disease without esophagitis; O99.72 Diseases of the skin and subcutaneous tissue complicating childbirth; O99.89 Other specified diseases and conditions complicating pregnancy, childbirth and the puerperium; I99.9 Unspecified disorder of circulatory system; L29.9 Pruritus, unspecified; L40.9 Psoriasis, unspecified; I83.90 Asymptomatic varicose veins of unspecified lower extremity; M17.0 Bilateral primary osteoarthritis of knee; M06.9 Rheumatoid arthritis, unspecified; M47.9 Spondylosis, unspecified; Z37.2 Twins, both liveborn; Z3A.37 37 weeks gestation of pregnancy; Z87.891 Personal history of nicotine dependence
CPT/HCPCS: 85025; 86850; 86900; 86901; 88307

== ENCOUNTER → 2023-06-03 | Outpatient (CLI) | payer OTHER ==
--- NOTE | 2023-06-03 12:31 | US ---
EXAMINATION TYPE: US pelvic complete DATE OF EXAM: 06/03/2023 COMPARISON: Pelvic ultrasound 2017 CLINICAL INDICATION: Female, 38 years old with history of N92.0 EXCESSIVE AND FREQUENT MENSTRUATION; Menorrhagia; TECHNIQUE: Transabdominal (TA). Date of LMP: 05/20/23 EXAM MEASUREMENTS: Uterus: 8.9 x 4.1 x 5.2 cm Endometrial Stripe: 0.44 cm Right Ovary: 2.5 x 4.0 x 2.5 cm Left Ovary: 1.9 x 2.1 x 2.4 cm 1. Uterus: Anteverted wnl 2. Endometrium: wnl 3. Right Ovary: Cystic area; 2.0 x 1.7 x 1.7 cm 4. Left Ovary: wnl 5. Bilateral Adnexa: wnl 6. Posterior cul-de-sac: wnl Unremarkable anteverted uterus. Endometrium is within normal limits. No evidence for ovarian torsion. Dominant follicle within the right ovary measuring up to 2.0 cm. No free fluid. IMPRESSION: No acute pelvic process.
== END | disposition home or self-care (01) ==
LOC: RADUSWWP 12:06
PROVIDERS: ATTEND Obstetrics & Gynecology
DX: N92.0 Excessive and frequent menstruation with regular cycle (principal)
CPT/HCPCS: 76856

== ENCOUNTER → 2023-10-07 | Outpatient (CLI) | payer OTHER ==
--- NOTE | 2023-10-08 08:23 | MM ---
Reason for Exam: Screening (asymptomatic). Baseline mammogram. Patient History: Menarche at age 14. First Full-Term at age 26. Premenopausal. Patient has history of breast feeding. Maternal aunt had breast cancer at or over age 50. Last menstrual period: 09/30/2023 Risk Values: Marzena 5 year model risk: 0.3%. NCI Lifetime model risk: 9.2%. Prior Study Comparison: Patient's first Mammogram. Tissue Density: The breast tissue is heterogeneously dense. This may lower the sensitivity of mammography. Findings: Analyzed By CAD. There is no suspicious group of microcalcifications or new suspicious mass in either breast. Overall Assessment: Benign, BI-RAD 2 Management: Screening Mammogram of both breasts in 1 year. . Patient should continue monthly self-breast exams. A clinical breast exam by your physician is recommended on an annual basis. This exam should not preclude additional follow-up of suspicious palpable abnormalities. Note on Marzena scores and lifetime risk: 1. A Marzena score greater than 3% is considered moderate risk. If this is the case, consider specialist referral to assess eligibility for a risk reducing agent. 2. If overall lifetime risk for the development of breast cancer is 20% or higher, the patient may qualify for future screening with alternating mammogram and breast MRI. Electronically signed and approved by: Yeison Brooks M.D. Radiologis
== END | disposition home or self-care (01) ==
LOC: RADMAMWWP 11:20
PROVIDERS: ATTEND Obstetrics & Gynecology
DX: Z12.31 Encounter for screening mammogram for malignant neoplasm of breast (principal); Z80.3 Family history of malignant neoplasm of breast
CPT/HCPCS: 77067

== ENCOUNTER → 2024-08-12 | Outpatient (CLI) | payer OTHER ==
--- NOTE | 2024-08-12 23:58 | BD ---
EXAMINATION TYPE: Axial Bone Density DATE OF EXAM: 08/12/2024 CLINICAL HISTORY: 39 years old Female. ICD-10 CODE: Z79.52 SHELTER (CURRENT) USE OF SYSTEMIC STERO ID , Additional History: Height: 64.5 Weight: 150.5 FRAX RISK QUESTIONS: Alcohol (3 or more units per day): no Family History (Parent hip fracture): no Glucocorticoids (More than 3mos): Prednisone (medrol dose packs often for Lupus) (Ex: prednisone, prednisolone, methylprednisolone, dexamethasone, and hydrocortisone). History of Fracture in Adulthood: no Secondary Osteoporosis: 1. Type 1 Diabetes: no 2. Hyperthyroidism: no 3. Menopause before 45: no 4. Malnutrition: no 5. Chronic liver disease: no Rheumatoid Arthritis: no Current Tobacco Use: no RISK FACTORS HISTORY OF: Hip Fracture (Right/Left): no Spine Fracture: no History of Wrist Fracture: no Surgery to Spine/Hip(right/left)/Wrist (right/left): no MEDICATIONS: Thyroid Medications: no Osteoporosis Medications: no EXAM MEASUREMENTS: Bone mineral densitometry was performed using the [employer] System. Bone mineral density as measured about the Lumbar spine is: ----- L1-L4(G/cm2):1.055 T Score Values are as follows: ----- L1: -1.4 ----- L2: -1.5 ----- L3: -0.9* ----- L4: -0.7 ----- L1-L4: -1.0 Z Score Values are as follows: ----- L1: -1.5 ----- L2: -1.6 ----- L3: -1.0 ----- L4: -0.8 ----- L1-L4: -1.1 Baseline Study Bone mineral density about the R hip (g/cm2): 0.852 Bone mineral density about the L hip (g/cm2): 0.895 T Score values are as follows: -----R Neck: -1.4 -----L Neck: -1.3 -----R Total: -1.2 -----L Total: -0.9 Z Score values are as follows: -----R Neck: -1.1 -----L Neck: -1.0 -----R Total: -1.1 -----L Total: -0.8 Baseline Study FRAX%s: The graph provided illustrates a % chance for a major osteoporotic fx and a % chance for the hips probability for fx in 10 years time. *NO FRAX GIVEN DUE TO PT AGE IMPRESSION: Osteopenia (T Score between -2.5 and -1). There is slightly increased risk of fracture and the patient may be considered for treatment. Re-Screen 2-5 years. NOTE: T-SCORE=SD OF THE YOUNG ADULT MEAN. [facility], , 08/12/2024 11:56 PM
== END | disposition home or self-care (01) ==
LOC: RADBDWWP 09:55
PROVIDERS: ATTEND Family Medicine
DX: M85.89 Other specified disorders of bone density and structure, multiple sites (principal); Z79.52 Long term (current) use of systemic steroids
CPT/HCPCS: 77080